=== PATIENT | male | born 1995 | race African-American/Black ===

== ENCOUNTER 2018-06-20 07:15 | Emergency (ER) | payer OTHER ==
[~2018-06-20] VITALS: Ht 172.7 cm; Wt 96.2 kg
[2018-06-20] MEDS ORDERED: NOHOMEMEDICATIONS PO (07:26)
[2018-06-20] MEDS ORDERED: IBUPROFEN 800800 MG PO (07:53)
[2018-06-20 08:03] VITALS: BP 127/79
== END 2018-06-20 08:04 | disposition home or self-care (01) ==
LOC: M.ERS 07:15
DX: S56.812A Strain of other muscles, fascia and tendons at forearm level, left arm, initial encounter (principal); X50.0XXA Overexertion from strenuous movement or load, initial encounter; Y93.89 Activity, other specified; Y92.89 Other specified places as the place of occurrence of the external cause; Y99.8 Other external cause status

== ENCOUNTER 2018-07-30 15:28 | Emergency (ER) | payer OTHER ==
[~2018-07-30] VITALS: Ht 172.7 cm; Wt 96.2 kg
[~2018-07-30 15:28] MED LIST: IBUPROFEN 800800 MG PO; NOHOMEMEDICATIONS PO
[2018-07-30 16:37] LABS: INFLUENZA A ANTIGEN None Detected (None Detect); INFLUENZA B ANTIGEN None Detected (None Detect)
[2018-07-30 17:13] VITALS: BP 132/88
== END 2018-07-30 17:14 | disposition home or self-care (01) ==
LOC: M.ERS 15:28
PROVIDERS: Nurse Practitioner Family
DX: S63.501A Unspecified sprain of right wrist, initial encounter (principal); J06.9 Acute upper respiratory infection, unspecified; X58.XXXA Exposure to other specified factors, initial encounter; Y93.89 Activity, other specified; Y92.89 Other specified places as the place of occurrence of the external cause; Y99.8 Other external cause status